=== PATIENT | male | born 1985 | race Two or more races ===

== ENCOUNTER 2021-04-13 19:50 | Emergency (ER) | payer MEDICAID, SELFPAY ==
--- NOTE | ~2021-04-13 | XR_ITS ---
EXAMINATION: XR CHEST CLINICAL INFORMATION: Anterior left-sided chest pain COMPARISON: None TECHNIQUE: 2 views of the chest were obtained. FINDINGS: No significant abnormality is noted involving the heart, lungs, mediastinum, bony thorax or soft tissues. XR/XR chest 2V IMPRESSION: Unremarkable examination.
[2021-04-13 20:44] VITALS: BP 145/84; PULSE 55; RESP 15; TEMP 37; O2SAT 99; BMI 24.4
--- NOTE | 2021-04-13 21:17 | ED_ITS ---
HPI - Fall General Chief Complaint: Fall Stated Complaint: fall at work, concerned of rib fracture Time Seen by Provider: 04/13/21 19:53 Source: patient Mode of arrival: ambulatory Limitations: no limitations History of Present Illness HPI Narrative: Patient is a 35 year old male presenting to the emergency department today with left rib pain. Patient states that 2 days ago he slipped on ice and has been having left sided rib pain since. Patient denies hitting his head with the incident. Patient denies any other injuries from the incident. Patient denies any lost of consciousness with the incident. Patient denies any dizziness, lightheadedness, abdominal pain, nausea, vomiting, fever, chills, blurry vision, double vision, loss of vision, chest pain, difficulty breathing, shortness of breath, back pain, night sweats, pain with urination, increased urinary frequency, increased urinary urgency, blood in his urine or stool, syncope or a near syncopal episode, bowel incontinence, bladder incontinence, bowel retention, bladder retention, or any other complaints at this time. MD complaint: fall Loss of consciousness: none Related Data Allergies Allergy/AdvReac Type Severity Reaction Status Date / Time Unable to Assess Allergy Verified 04/13/21 19:54 Review of Systems Constitutional: Constitutional: Reports no additional constitutional complaints, Denies chills, Denies fever(s) and Denies night sweats Eyes: Eyes: Reports no additional eye complaints, Denies blurry vision, Denies change in vision, Denies diplopia, Denies eye discharge, Denies loss of vision and Denies eye pain ENT: Denies dizziness Cardiovascular: Cardiovascular: Reports no additional cardiovascular complaints, Denies chest pain, Denies lightheadedness, Denies Loss of Consciousness and Denies dyspnea Respiratory: Respiratory: Reports no additional respiratory complaints and Denies dyspnea Gastrointestinal: Gastrointestinal: Reports no additional gastrointestinal complaints, Denies abdominal pain, Denies melena, Denies hematochezia, Denies change in bowel habits and Denies change in stool character Genitourinary: Genitourinary: Reports no additional male genitourinary complaints, Denies hematuria, Denies oliguria, Denies difficulty urinating, Denies dysuria, Denies urinary frequency, Denies urinary hesitancy, Denies urinary incontinence and Denies urinary urgency Musculoskeletal: Musculoskeletal: Reports no additional musculoskeletal c omplaints, Denies numbness and Denies tingling Comments: left rib pain Neurologic: Denies dizziness, Denies loss of vision, Denies numbness and Denies tingling Psychiatric: Psychiatric: Reports no additional psychiatric complaints Endocrine: Endocrine: Reports no additional endocrine complaints Hematologic/Lymphatic: Hematologic/Lymphatic: Reports no additional hematologic/lymphatic complaints Allergic/Immunologic: Allergic/Immunologic: Reports no additional allergic/immunologic complaints PMFSH Past Medical History Attestation statement: The following information was validated with the patient. Source: old records reviewed Medical History No known health problems Surgical History History of ankle surgery Physical Exam Vital Signs: Vital Signs: Last Vital Signs Temp 98.6 F 04/13/21 20:44 Pulse 55 04/13/21 20:44 Resp 15 04/13/21 20:44 BP 145/84 H 04/13/21 20:44 Pulse Ox 99 04/13/21 20:44 BMI result Body Mass Index 24.4 Const: General: cooperative, no acute distress, alert and awake Nutritional Appearance: well nourished Orientation/consciousness: patient oriented x3 Limitations: no limitations HENMT: Head: Yes normal to inspection and Yes atraumatic Ears: hearing grossly normal bilaterally and external ears normal General nose exam: Normal external nose present, no nasal discharge noted and no epistaxis Face and sinus: Yes normal facial exam, No abrasion and No laceration Mouth: Normal oral and palatal mucosa present, no drooling and no muffled voice Eyes: General: appearance normal, both eyes and all related structures Periorbital: periorbital findings normal Eyelids: Yes eyelids normal Conjunctivae: conjunctivae normal Pupils: Equal, round and reactive pupils present EOM: EOMs intact bilaterally Neck: Neck: Yes normal visual inspection, Yes full ROM and Yes no lymphadenopathy Chest: Chest palpation & inspection: normal inspection of the chest Resp: Effort & Inspection: normal respiratory effort and able to speak in complete sentences Auscultation: clear to auscultation bilaterally Cardio: Rate: regular rate Rhythm: regular rhythm GI: Inspection: Yes normal to inspection Neuro: General: patient oriented x3 and moves all extremities Cranial nerves: Yes Equal, round and reactive pupils present Cognition (Neuro): normal cognition Motor exam (neuro): 5/5 motor strength present throughout Sensory Exam: Normal double simultaneous stimulation for sensation Coordin ation: [id number] test normal Extrem: General: Yes normal to inspection, Yes full ROM and Yes capillary refill normal Psych: Appearance: grossly normal Mental Status: mental status grossly normal Affect: normal affect Attitude: cooperative Thought process: Normal thought process present Thought content: Normal thought content present Insight: Good insight present (Psych) MDM - Fall MDM Narrative Medical decision making narrative: Patient is a 35 year old male presenting to the emergency department today with left rib pain. Patient's physical exam was unremarkable. Patient's chest x-ray showed no acute process. I explained my physical exam findings as well as all test results to the patient. I answered all questions asked by the patient. I stressed the importance of the patient taking his medication as prescribed. I stressed the importance of the patient following up with his primary care provider. I stressed the importance of the patient returning to the emergency department immediately if his symptoms were to worsen or if he were to develop any dizziness, shortness of breath, difficulty breathing, chest pain, blurry vision, loss of vision, nausea, vomiting, abdominal pain, fever, chills, back pain, or any other complaints. Patient verbalized agreement and understanding with this treatment plan and discharge. Differential Diagnosis Differential diagnosis: Likely fracture Medical Records Attestation: I reviewed the patient's medical records. Imaging Data Chest x-ray: Attestation: I personally reviewed and interpreted this imaging study as follows: Radiologist's impression: EXAMINATION: XR CHEST CLINICAL INFORMATION: Anterior left-sided chest pain COMPARISON: None TECHNIQUE: 2 views of the chest were obtained. FINDINGS: No significant abnormality is noted involving the heart, lungs, mediastinum, bony thorax or soft tissues. XR/XR chest 2V IMPRESSION: Unremarkable examination. Dictated By: FORTUNATO SPENCE MD Signed By: Electronically signed by FORTUNATO SPENCE MD 04/13/212012 Discharge Plan Discharge Clinical Impression: Fall Patient Disposition: Home, Self-Care Instructions: Fall Prevention (ED) Additional Instructions: Follow up with your primary care provider. Return to the emergency department immediately if your symptoms worsen or if you develop any dizziness, shortness of breath, difficulty breathing, chest pain, blurry vision, loss of vision, nausea, vomiting, abdominal pain, fever, chills, back pain, or any other complaints. Print Language: Guyanese
== END 2021-04-13 23:21 | disposition home or self-care (01) ==
PROVIDERS: Emergency Provider Internal Medicine
DX: R07.81 Pleurodynia (principal); Z91.81 History of falling
CPT/HCPCS: 71046; 99283

== ENCOUNTER 2021-05-13 21:33 | Emergency (ER) | payer MEDICAID, SELFPAY ==
[2021-05-13 22:59] VITALS: BP 139/65; PULSE 58; RESP 18; TEMP 36.7; O2SAT 98; BMI 24.1
--- NOTE | 2021-05-13 23:32 | ED_ITS ---
HPI - Eye Problem General Chief complaint: Eye Problems Stated complaint: piece of nail hit his eye Time Seen by Provider: 05/13/21 23:32 Source: patient Mode of arrival: ambulatory Limitations: language barrier History of Present Illness HPI Narrative: Patient was working on a project while nailing with hammer, the head of the nail flipped in the air and hit his left eye this happened yesterday at 13:00 within few hours of the injury patient patient vision got decreased in the left eye has light perception hand movements but mostly is black shadow no other injuries at this time patient feels slight pressure in the left eye with decreased vision Related Data Allergies Allergy/AdvReac Type Severity Reaction Status Date / Time No Known Allergies Allergy Verified 05/13/21 23:02 Review of Systems Review of Systems: Yes all other systems are reviewed and are negative [facility] Past Medical History Medical History No known health problems Surgical History History of ankle surgery Social History Social History Advance Directives: No Physical Exam Vital Signs: Vital Signs: Last Vital Signs Temp 98.1 F 05/13/21 22:59 Pulse 58 05/13/21 22:59 Resp 18 05/13/21 22:59 BP 139/65 05/13/21 22:59 Pulse Ox 98 05/13/21 22:59 BMI result Body Mass Index 24.1 Const: General: comfortable and no acute distress Eyes: Other: PERRL, anterior chamber normal left side, is slight erythema of the sclera Cornea normal in appearance negative for fluorescein uptake Funduscopy unable to visualize fundus behind and anterior chamber on the left eye, right eyes normal Ultrasound of the left eye done by myself shows normal Lens and posterior chamber and the retina Normal visual acuity right eye Left eye a perception to the light present hand signs present otherwise unable to see MDM - Eye Problem MDM Narrative Medical decision making narrative: Patient has closed injury to the left eye clinically has hyphema patient advised to follow-up with the aircraft sales representative Dr. Gomez tomorrow for early appointment Discharge Plan Discharge Clinical Impression: Hyphema Patient Disposition: Home, Self-Care Instructions: Hyphema (ED) Additional Instructions: Avoid straining or stooping Call aircraft sales representative tomorrow to see as soon as possible Report to the ER if worsening of the vision or pain Evite monika o naida Hardwick ma?cherelle al oftalm?logo para joey lo antes posible Informar a urgencias si empeora la visi?n o el dolor Referrals: Hussein Gomez [Physician] - 3 days Interventions: ED Discharge Assessment Last Done: 05/14/21 00:45 Discharge Date/Time: 05/14/21 00:47
--- NOTE | 2021-05-14 00:24 | PC.NURSE ---
PT EVALED BY DR HUERTA FOR LEFT EYE INJURY. EYE STAINED AND EXAMINED. BEDSIDE ULTRASOUND DONE BY DR HUERTA.
[2021-05-14] MEDS: Fluorescein Sodium STRIP 1 STRIP EYE-LEFT (00:33)
[2021-05-14] MEDS: Tetracaine HCl/PF 0.5% Oph Sol 4 ML DROPS 3 DROP EYE-LEFT (00:33)
[2021-05-14] MEDS: Tobramycin Sulfate 0.3% Sol Op 5 ML BTL 2 DROP EYE-LEFT (00:33)
== END 2021-05-14 00:47 | disposition home or self-care (01) ==
PROVIDERS: Emergency Provider Internal Medicine
DX: S05.12XA Contusion of eyeball and orbital tissues, left eye, initial encounter (principal); W20.8XXA Other cause of strike by thrown, projected or falling object, initial encounter; H57.12 Ocular pain, left eye; Y93.89 Activity, other specified; Y92.9 Unspecified place or not applicable; Y99.9 Unspecified external cause status
CPT/HCPCS: 99284

== ENCOUNTER 2022-03-24 12:23 | Emergency (ER) | payer MEDICAID, SELFPAY ==
--- NOTE | ~2022-03-24 | XR_ITS ---
EXAMINATION: XR ANKLE, RIGHT XR FOOT, RIGHT CLINICAL INFORMATION: Fall, trauma, pain COMPARISON: None TECHNIQUE: 2 views of the right ankle and 2 views of the right foot are obtained. A lateral view of the combined right ankle and foot is also included for a total of 5 views. FINDINGS: There is no fracture or dislocation. There is compression plate and screws involving the distal fibular and lateral malleolus. The hardware is intact. No destructive process or osteolysis. The ankle mortise is symmetric. There is mild soft tissue swelling medial and lateral sides of the ankle. The retrocalcaneal recess is preserved. The subtalar joint is unremarkable. The foot shows no fracture or dislocation or arthropathy. XR/XR foot RT min 3V IMPRESSION: -Mild soft tissue swelling medial and lateral ankle. -No fracture or dislocation, ankle and foot. -Prior ORIF distal fibula and lateral malleolus. Hardware intact.
--- NOTE | ~2022-03-24 | XR_ITS ---
EXAMINATION: XR HIP, RIGHT CLINICAL INFORMATION: Fall, trauma, pain COMPARISON: None TECHNIQUE: AP view of the pelvis is performed. The right hip is imaged in AP and frog-lateral projections. There are a total of 3 views. FINDINGS: There is transitional vertebrae at lumbosacral junction with right douglas-sacralization and left douglas-lumbarization representing developmental variant. The pelvis and right hip show no fracture or dislocation. Left hip is unremarkable. There is no diastases SI joints or pubis. No arthropathy. Bowel gas unremarkable. XR/XR hip RT w PEL1V IMPRESSION: No fracture or dislocation.
--- NOTE | ~2022-03-24 | XR_ITS ---
EXAMINATION: XR ANKLE, RIGHT XR FOOT, RIGHT CLINICAL INFORMATION: Fall, trauma, pain COMPARISON: None TECHNIQUE: 2 views of the right ankle and 2 views of the right foot are obtained. A lateral view of the combined right ankle and foot is also included for a total of 5 views. FINDINGS: There is no fracture or dislocation. There is compression plate and screws involving the distal fibular and lateral malleolus. The hardware is intact. No destructive process or osteolysis. The ankle mortise is symmetric. There is mild soft tissue swelling medial and lateral sides of the ankle. The retrocalcaneal recess is preserved. The subtalar joint is unremarkable. The foot shows no fracture or dislocation or arthropathy. XR/XR ankle RT min 3V IMPRESSION: -Mild soft tissue swelling medial and lateral ankle. -No fracture or dislocation, ankle and foot. -Prior ORIF distal fibula and lateral malleolus. Hardware intact.
--- NOTE | 2022-03-24 12:39 | ED_ITS ---
HPI - Fall General Chief Complaint: Fall <KISHORE Mccann Last Filed: 03/24/22 12:44> Stated Complaint: fall 03/24/22 R foot inj <KISHORE Mccann Last Filed: 03/24/22 12:44> Time Seen by Provider: 03/24/22 14:29 <KISHORE Mccann Last Filed: 03/24/22 12:44> Source: patient <KISHORE Osman Last Filed: 03/24/22 16:12> Mode of arrival: ambulatory <KISHORE Osman Last Filed: 03/24/22 16:12> History of Present Illness HPI Narrative: 36-year-old male with no significant past medical history presenting to the ED complaining of right ankle/foot and right hip pain s/p falling off a 6 ft ladder onto feet SOFTWARE APPLICATIONS SPECIALIST. Denies falling all the way to ground, head trauma, or LOC. denies taking anticoagulation. Denies neck/back pain, numbness, tingling, weakness <KISHORE Osman Last Filed: 03/24/22 16:12> MD complaint: fall <KISHORE Osman Last Filed: 03/24/22 16:12> Related Data Home Medications: Previous Rx's Medication Instructions Recorded acetaminophen 500 mg tablet 500 mg PO Q6H PRN fever or pain 03/24/22 (Tylenol Extra Strength) #14 tabs ibuprofen 800 mg tablet 800 mg PO Q8H PRN pain #14 tabs 03/24/22 <KISHORE Mccann Last Filed: 03/24/22 12:44> Allergies/Adverse Reactions: Allergies Allergy/AdvReac Type Severity Reaction Status Date / Time No Known Allergies Allergy Verified 03/24/22 12:43 <KISHORE Mccann Last Filed: 03/24/22 12:44> Review of Systems Review of Systems: Constitutional: No Fever, No Chills ENT/Mouth: No Ear Pain, No Nasal Congestion, No sore throat, No Rhinorrhea, No Swallowing Difficulty Cardiovascular: No Chest Pain, No SOB Respiratory: No Cough, No Sputum Gastrointestinal: No Nausea, No Vomiting, No Diarrhea, No Constipation, No Abdominal pain Genitourinary: No Dysuria, No Urinary Frequency, No Hematuria, No Flank Pain Musculoskeletal: + joint pain, No Myalgias, + Joint Swelling Skin: No Skin Lesions, No rash Neuro: No Weakness, No Numbness, No Paresthesias <KISHORE Osman - Last Filed: 03/24/22 16:12> Yes all other systems are reviewed and are negative <KISHORE Osman - Last Filed: 03/24/22 16:12> Constitutional: Constitutional: Reports as per HPI <KISHORE Osman - Last Filed: 03/24/22 16:12> [facility] Past Medical History Attestation statement: The following information was validated with the patient. <KISHORE Osman - Last Filed: 03/24/22 16:12> Medical History: Medical History No known health problems <KISHORE Mccann - Last Filed: 03/24/22 12:44> Surgical History: Surgical History History of ankle surgery <KISHORE Mccann - Last Filed: 03/24/22 12:44> Social History Social History: Social History Advance Directives: No Advance Directives Information Provided: No <KISHORE Mccann - Last Filed: 03/24/22 12:44> Physical Exam Vital Signs: Vital Signs: Last Vital Signs Temp 98 F 03/24/22 12:40 Pulse 94 03/24/22 12:40 Resp 03/24/22 12:40 BP 151/87 H 03/24/22 12:40 Pulse Ox 97 03/24/22 12:40 BMI result Body Mass Index 29.3 <KISHORE Mccann - Last Filed: 03/24/22 12:44> Vital Signs: Last Vital Signs Temp 98 F 03/24/22 12:40 Pulse 94 03/24/22 12:40 Resp 03/24/22 12:40 BP 151/87 H 03/24/22 12:40 Pulse Ox 97 03/24/22 12:40 BMI result Body Mass Index 29.3 <KISHORE Osman - Last Filed: 03/24/22 16:12> Vital Signs: Last Vital Signs Temp 98 F 03/24/22 12:40 Pulse 94 03/24/22 12:40 Resp 19 03/24/22 12:40 BP 151/87 H 03/24/22 12:40 Pulse Ox 97 03/24/22 12:40 BMI result Body Mass Index 29.3 <Jeremy Patterson MD - Last Filed: 03/31/22 16:26> Const: General: cooperative, healthy appearing and comfortable <KISHORE Osman - Last Filed: 03/24/22 16:12> Orientation/consciousness: patient oriented x3 <KISHORE Osman - Last Filed: 03/24/22 16:12> Limitations: no limitations <KISHORE Osman - Last Filed: 03/24/22 16:12> HEENT: Head: Yes normal to inspection and Yes atraumatic <KISHORE Osman - Last Filed: 03/24/22 16:12> Ears: hearing grossly normal bilaterally <KISHORE Osman - Last Filed: 03/24/22 16:12> General nose exam: Normal external nose present <KISHORE Osman - Last Filed: 03/24/22 16:12> Face and sinus: Yes normal facial exam <KISHORE Osman - Last Filed: 03/24/22 16:12> Eyes: General: appearance normal, both eyes and all related structures <KISHORE Osman - Last Filed: 03/24/22 16:12> EOM: EOMs intact bilaterally <KISHORE Osman - Last Filed: 03/24/22 16:12> Neck: Other: No midline cervical spinous tenderness <KISHORE Osman - Last Filed: 03/24/22 16:12> Neck: Yes normal visual inspection and Yes no meningeal signs <KISHORE Osman - Last Filed: 03/24/22 16:12> Resp: Effort & Inspection: normal respiratory effort and no respiratory distress <KISHORE Osman - Last Filed: 03/24/22 16:12> Cardio: Rate: regular rate <KISHORE Osman - Last Filed: 03/24/22 16:12> GI: Inspection: Yes normal to inspection <KISHORE Osman Last Filed: 03/24/22 16:12> Back/Spine/Pelvis: Other: No midline thoracic/lumbar spinous tenderness/step-off or deformity <KISHORE Osman - Last Filed: 03/24/22 16:12> Skin: Rashes: no rashes <KISHORE Osman Last Filed: 03/24/22 16:12> Wounds: no wounds <KISHORE Osman Last Filed: 03/24/22 16:12> Neuro: General: patient oriented x3, tone normal, moves all extremities and no meningeal signs <KISHORE Osman Last Filed: 03/24/22 16:12> Gait exam (Neuro): Normal gait present <KISHORE Osman Last Filed: 03/24/22 16:12> Extrem: Other: Right hip/upper thigh with mild tenderness to palpation. Active and passive ROM to hip and knee intact without pain. Right ankle with noted swelling, diffusely tender to palpation. Foot nontender. NV intact. Limited ROM of ankle secondary to pain. No crepitus/erythema or ecchymosis <KISHORE Osman Last Filed: 03/24/22 16:12> Course Course Course Narrative: RME- 12:40PM - 36yoM who is Tristanian speaking our PA student speaks Tristanian therefore is translating for us in triage who is presenting to the ER after he Fell off a ladder 6ft onto his feet standing then whatever he fell on top made his leg twist and since then has been having right hip/thigh/ankle. Denies head injury or LOC or any other injuries complaints or concerns at this time. Plan: Will obtain right hip and right ankle/foot x-ray. Patient will be sent back to the waiting room to evaluated in [facility]. <KISHORE Mccann - Last Filed: 03/24/22 12:44> RME- 12:40PM - 36yoM who is Tristanian speaking our PA student speaks Tristanian therefore is translating for us in triage who is presenting to the ER after he Fell off a ladder 6ft onto his feet standing then whatever he fell on top made his leg twist and since then has been having right hip/thigh/ankle. Denies head injury or LOC or any other injuries complaints or concerns at this time. Plan: Will obtain right hip and right ankle/foot x-ray. Patient will be sent back to the waiting room to evaluated in [facility]. XR ankle RT min 3V/XR foot RT min 3V IMPRESSION: -Mild soft tissue swelling medial and lateral ankle. -No fracture or dislocation, ankle and foot. -Prior ORIF distal fibula and lateral malleolus. Hardware intact. XR hip RT w PEL1V IMPRESSION: No fracture or dislocation. > patient placed in Aircast and supplied with crutches is to follow-up with PCP/ortho as needed Results discussed with patient including worrisome signs and symptoms and strict return precautions, and when to return to the emergency department. They verbal ized understanding and feel safe for discharge at this time. <KISHORE Osman - Last Filed: 03/24/22 16:12> Medications Administered Discontinued Medications Generic Name Dose Route Start Last Admin Trade Name Freq PRN Reason Stop Dose Admin Ketorolac Tromethamine 30 mg 03/24/22 15:24 03/24/22 15:28 Ketorolac Tromethamine 30 Mg/Ml Vial IM 03/24/22 15:25 30 mg ONCE ONE Administration <KISHORE Mccann - Last Filed: 03/24/22 12:44> Medications Administered Discontinued Medications Generic Name Dose Route Start Last Admin Trade Name Freq PRN Reason Stop Dose Admin Ketorolac Tromethamine 30 mg 03/24/22 15:24 03/24/22 15:28 Ketorolac Tromethamine 30 Mg/Ml Vial IM 03/24/22 15:25 30 mg ONCE ONE Administration <KISHORE Osman - Last Filed: 03/24/22 16:12> Medications Administered Discontinued Medications Generic Name Dose Route Start Last Admin Trade Name Freq PRN Reason Stop Dose Admin Ketorolac Tromethamine 30 mg 03/24/22 15:24 03/24/22 15:28 Ketorolac Tromethamine 30 Mg/Ml Vial IM 03/24/22 15:25 30 mg ONCE ONE Administration <Jeremy Patterson MD - Last Filed: 03/31/22 16:26> Medical Decision Making Medical Decision Making MDM Narrative: 36-year-old male with no significant past medical history presenting to the ED complaining of right ankle/foot and right hip pain s/p falling off a 6 ft ladder onto feet SOFTWARE APPLICATIONS SPECIALIST. On exam vital signs stable, NAD, nontoxic appearing, physical exam as noted above. Concern for fracture versus sprain. No calcaneus tenderness, low suspicion for compression spinal deformity. Plan: X-ray, IM Toradol Please refer to course for remaining clinical decision making, interpretation of labs/imaging results, and discussions with consultants and/or family members. <KISHORE Osman - Last Filed: 03/24/22 16:12> Differential Diagnosis Differential Diagnoses: The differential diagnosis associated with the presentation includes (As above) <KISHORE Osman - Last Filed: 03/24/22 16:12> Radiology Impression Discussion of test interpretation with radiology: I have reviewed the radiologist's reading. <KISHORE Osman - Last Filed: 03/24/22 16:12> Prescription Management I considered prescription management with: Pain Medication <KISHORE Osman - Last Filed: 03/24/22 16:12> Attestation Attending Attestation: I reviewed PROCESS CONTROL SPECIALIST/PA/Resident note, assessment and plan. I agree with the documentation, assessment and plan unless otherwise stated. <Jeremy Patterson MD - Last Filed: 03/31/22 16:26> Discharge Plan Discharge Clinical Impression: Ankle sprain <KISHORE Mccann - Last Filed: 03/24/22 12:44> Patient Disposition: Home, Self-Care <KISHORE Mccann - Last Filed: 03/24/22 12:44> Instructions: Ankle Sprain (ED) <KISHORE Mccann - Last Filed: 03/24/22 12:44> Additional Instructions: Your x-ray does not show any fractures, however you do have a lot of soft tissue swelling, you sprained your ankle. Bear weight as tolerated. Wear Aircast for comfort and stability Ice and elevate Take Tylenol and Motrin which will help with pain and inflammation Follow-up with her doctor If symptoms persist or worsen return to the emergency department <KISHORE Mccann - Last Filed: 03/24/22 12:44> Prescriptions: New ibuprofen 800 mg tablet 800 mg PO Q8H PRN (Reason: pain) Qty: 14 0RF acetaminophen [Tylenol Extra Strength] 500 mg tablet 500 mg PO Q6H PRN (Reason: fever or pain) Qty: 14 0RF <KISHORE Mccann - Last Filed: 03/24/22 12:44> Referrals: [facility] [place] [facility] [place] Group] Physician,Unknown J [Primary Care Provider] - <KISHORE Mccann - Last Filed: 03/24/22 12:44> Stand Alone Forms: Work/School Release <KISHORE Mccann - Last Filed: 03/24/22 12:44> Interventions: ED Discharge Assessment Last Done: 03/24/22 16:03 <KISHORE Mccann - Last Filed: 03/24/22 12:44> Discharge Date/Time: 03/24/22 16:03 <KISHORE Mccann - Last Filed: 03/24/22 12:44>
[2022-03-24 12:40] VITALS: BP 151/87; PULSE 94; RESP 19; TEMP 36.6; O2SAT 97; BMI 29.3
[2022-03-24] MEDS: Ketorolac Tromethamine 30 MG/ML VIAL IM (15:28)
== END 2022-03-24 16:03 | disposition home or self-care (01) ==
PROVIDERS: Emergency Provider Emergency Medicine
DX: S93.401A Sprain of unspecified ligament of right ankle, initial encounter (principal); M25.571 Pain in right ankle and joints of right foot; M25.551 Pain in right hip; W11.XXXA Fall on and from ladder, initial encounter; Y93.9 Activity, unspecified; Y92.9 Unspecified place or not applicable; Y99.9 Unspecified external cause status; Z79.899 Other long term (current) drug therapy
CPT/HCPCS: 73502; 73610; 73630; 96372; 99283; 99284; J1885

== ENCOUNTER 2022-04-28 13:13 | Emergency (ER) | payer MEDICAID, OTHER, SELFPAY ==
[2022-04-28 13:44] VITALS: BP 128/71; PULSE 59; RESP 16; TEMP 36.7; O2SAT 100; BMI 27.5
--- NOTE | 2022-04-28 13:54 | ED_ITS ---
HPI - General Adult General Chief complaint: Extremity Injury, Lower Stated complaint: R foot inj Time Seen by Provider: 04/28/22 13:54 Source: patient, RN notes reviewed, old records reviewed and freelance interpreter/translator Mode of arrival: ambulatory Limitations: language barrier History of Present Illness HPI narrative: 36-year-old male presents for evaluation of right ankle pain. Patient was seen here in 03/24/2022 He was diagnosed with an ankle sprain Patient took ibuprofen / Tylenol with some relief of his symptoms. He still endorses mild pain with ambulation. Related Data Previous Rx's Medication Instructions Recorded acetaminophen 500 mg tablet 500 mg PO Q6H PRN fever or pain 03/24/22 (Tylenol Extra Strength) #14 tabs ibuprofen 800 mg tablet 800 mg PO Q8H PRN pain #14 tabs 03/24/22 Allergies Allergy/AdvReac Type Severity Reaction Status Date / Time No Known Allergies Allergy Verified 03/24/22 12:43 Review of Systems Constitutional: Constitutional: Reports as per HPI, Denies chills, Denies fatigue and Denies fever(s) Neurologic: Denies focal weakness Endocrine: Endocrine: Denies fatigue [facility] Past Medical History Medical History No known health problems Surgical History History of ankle surgery Physical Exam ED Vital Signs: Vital Signs - 24 hr 04/28/22 13:44 Temperature 98.1 F Pulse Rate 59 Respiratory Rate 16 Blood Pressure 128/71 Pulse Oximetry 100 Oxygen Delivery Method Room Air BMI result Body Mass Index 27.5 Const General: healthy appearing, comfortable, no acute distress, alert and awake Nutritional Appearance: well nourished Orientation/consciousness: patient oriented x3 HENMT Head: Yes normocephalic and Yes atraumatic Throat: Yes posterior oropharynx normal Eyes Eyelids: Yes eyelids normal Conjunctivae: conjunctivae normal Sclerae: sclerae normal Corneas: corneas normal Pupils: Equal, round and reactive pupils present EOM: EOMs intact bilaterally Neck Neck: Yes full ROM Resp Effort & Inspection: normal respiratory effort, able to speak in complete sentences, no audible wheezes and not labored Auscultation: clear to auscultation bilaterally Skin General skin exam: no rashes or lesions noted and elasticity normal Neuro General: patient oriented x3 Cranial nerves: Yes Equal, round and reactive pupils present and Yes Bilaterally intact EOM present Cognition (Neuro): normal cognition Extrem Other: Moving all extremities well without any obvious deformities Medical Decision Making Medical Decision Making MDM Narrative: Patient is seen and evaluated, he denies any new fracture, he has a reassuring physical exam. The patient was given orthopedic follow-up but he reports not following up. I discussed this with the patient and he would like to be discharged at this time and will follow-up with orthopedics as an outpatient for further evaluation and management. I do not see any indication for further imaging at this time. He denies any new injury Differential Diagnosis Ankle sprain Contusion Fracture Tendon injury Ligamentous injury Discharge Plan Discharge Clinical Impression: Ankle pain Patient Disposition: Home, Self-Care Instructions: Ankle Sprain (ED) Additional Instructions: Follow-up with orthopedics at the number provided Prescriptions: No Action ibuprofen 800 mg tablet 800 mg PO Q8H PRN (Reason: pain) Qty: 14 0RF acetaminophen [Tylenol Extra Strength] 500 mg tablet 500 mg PO Q6H PRN (Reason: fever or pain) Qty: 14 0RF Referrals: Isiah Watson MD [Physician] - (ankle pain since 03/24/22. negative x-rays)
== END 2022-04-28 14:06 | disposition home or self-care (01) ==
PROVIDERS: Emergency Provider Student in an Organized Health Care Education/Training Program
DX: M25.571 Pain in right ankle and joints of right foot (principal)
CPT/HCPCS: 99282

== ENCOUNTER → 2022-05-18 10:55 | Outpatient (BNVA) | payer MEDICAID, SELFPAY | PROVIDERS: Visit Provider Physician Assistant | DX: S93.401A Sprain of unspecified ligament of right ankle, initial encounter (principal) | CPT/HCPCS: 99202 ==

== ENCOUNTER 2022-12-23 09:44 | Emergency (ER) | payer MEDICAID, OTHER, SELFPAY ==
--- NOTE | ~2022-12-23 | XR_ITS ---
EXAMINATION: XR KNEE, LEFT CLINICAL INFORMATION: Left knee pain and swelling. COMPARISON: None available. TECHNIQUE: Two views of the left knee. FINDINGS: Alignment is anatomic. Joint spaces are maintained. No displaced fracture. There is a moderate suprapatellar joint effusion. XR/XR knee LT 2V IMPRESSION: Moderate suprapatellar joint effusion.
[2022-12-23 09:52] VITALS: BP 140/84; PULSE 88; RESP 14; TEMP 36.1; O2SAT 99; BMI 27.7
--- NOTE | 2022-12-23 10:46 | ED_ITS ---
HPI - Extremity Injury (Lower) General Chief Complaint: Extremity Injury, Lower Stated Complaint: L Knee Pain Injury 12/17/22 Time Seen by Provider: 12/23/22 10:11 Source: patient, RN notes reviewed and old records reviewed Mode of arrival: ambulatory History of Present Illness HPI Narrative: 37-year-old male with no significant past medical history presenting to ED complaining of left knee pain and swelling s/p twisting wrong while playing soccer 6 days ago. Reports increasing pain with movement, ambulating, and bending. Also reports physical job which is exacerbating symptoms. Denies direct injury/trauma or fall, numbness, tingling, weakness, fever. MD complaint: knee injury Related Data Previous Rx's Medication Instructions Recorded naproxen 500 mg tablet 500 mg PO BID PRN pain 10 days #20 12/23/22 tabs Allergies Allergy/AdvReac Type Severity Reaction Status Date / Time No Known Allergies Allergy Verified 05/18/22 11:12 Review of Systems Review of Systems: Constitutional: No Fever, No Chills ENT/Mouth: No Ear Pain, No Nasal Congestion, No Sinus Pain, No Hoarseness, No sore throat, No Rhinorrhea, No Swallowing Difficulty Cardiovascular: No Chest Pain, No SOB Respiratory: No Cough, No Sputum, No Wheezing Musculoskeletal: + joint pain, No Myalgias, + Joint Swelling Skin: No Skin Lesions, No rash Neuro: No Weakness, No Numbness, No Paresthesias Yes all other systems are reviewed and are negative Constitutional: Constitutional: Reports as per [facility] Past Medical History Attestation statement: The following information was validated with the patient. Source: old records reviewed Medical History No known health problems Surgical History Hx of eye surgery History of ankle surgery Social History Social History Patient Tobacco Use Status: Never used Tobacco Current occupational status: employed Current occupation: [employer] Physical Exam Vital Signs: Vital Signs: Last Vital Signs Temp 96.9 F 12/23/22 09:52 Pulse 88 12/23/22 09:52 Resp 14 12/23/22 09:52 BP 140/84 H 12/23/22 09:52 Pulse Ox 99 12/23/22 09:52 O2 Del Method Room Air 12/23/22 09:52 BMI result Body Mass Index 27.7 Const: General: cooperative, healthy appearing and no acute distress Orientation/consciousness: patient oriented x3 Limitations: no limitations HEENT: Head: Yes normal to inspection and Yes atraumatic Ears: hearing grossly normal bilaterally General nose exam: Normal external nose present Face and sinus: Yes normal facial exam Eyes: General: appearance normal, both eyes and all related structures EOM: EOMs intact bilaterally Neck: Neck: Yes normal visual inspection and Yes no meningeal signs Resp: Effort & Inspection: normal respiratory effort and no respiratory distress Cardio: Rate: regular rate Skin: Rashes: no rashes Wounds: no wounds Neuro: General: patient oriented x3, tone normal and no meningeal signs Cranial nerves: Yes CN's II-XII intact bilaterally Gait exam (Neuro): Normal gait present Extrem: Other: Left knee with mild swelling and tenderness > suprapatellar region. Full range of motion intact with some discomfort. No pitting edema. Neurovascular intact distally. No erythema/warmth. No crepitus Course Course Course Narrative: XR knee LT 2V IMPRESSION: Moderate suprapatellar joint effusion. Results discussed with patient including worrisome signs and symptoms and strict return precautions, and when to return to the emergency department. They verbalized understanding and feel safe for discharge at this time. Medications Administered Discontinued Medications Generic Name Dose Route Start Last Admin Trade Name Freq PRN Reason Stop Dose Admin Ketorolac Tromethamine 30 mg 12/23/22 10:48 12/23/22 10:58 Ketorolac Tromethamine 30 Mg/Ml Vial IM 12/23/22 10:49 30 mg ONCE ONE Administration Medical Decision Making Medical Decision Making [facility] Narrative: 37-year-old male with no significant past medical history presenting to ED complaining of left knee pain and swelling s/p twisting wrong while playing soccer 6 days ago. On exam vital signs stable, NAD, nontoxic appearing, physical exam as above. Concern for strain however tendon/ligamental or meniscal injury. Lower suspicion for fracture/dislocation. No evidence of septic joint/arthritis Plan: X-ray, IM Toradol, orthopedic follow-up Please refer to course for remaining clinical decision making, interpretation of labs/imaging results, and discussions with consultants and/or family members. Differential Diagnosis Differential Diagnoses: The differential diagnosis associated with the presentation includes As above Independent Interpretation I performed an independent interpretation of an: Plain X-Ray Radiology Impression Discussion of test interpretation with radiology: I have reviewed the radiologist's reading. External Record Review External record reviewed: Inpatient record, Office record, Outpatient record, Prior outpatient labs, Prior outpatient radiology, Primary care record and Outside ED record Tests considered The following testing was considered but not selected: As above Prescription Management I considered prescription management with: Pain Medication Discharge Plan Discharge Clinical Impression: Suprapatellar effusion of knee Patient Disposition: Home, Self-Care Instructions: Swollen Knee Joint (ED) Additional Instructions: Your x-ray shows a suprapatellar knee effusion Wear Trev wrap/compression for comfort and stability Naproxen as an anti-inflammatory/pain medication, take with food. In addition take Tylenol home Follow-up with Orthopedics Is symptoms persist or worsen return to the ED you likely need an MRI Hartman radiograf?a muestra un derrame suprapatelar en la rodilla. Use envoltura/compresi?n Trev para mayor comodidad y estabilidad. Naproxeno daniel medicamento antiinflamatorio/analg?sico, t?azevedo con alimentos. Adem?s ll?vate Tylenol a casa. Seguimiento con [employer] ?Los s?ntomas persisten o empeoran? Regrese al servicio de urgencias. probablemente necesites haroon resonancia magn?ricky Prescriptions: New naproxen 500 mg tablet 500 mg PO BID PRN (Reason: pain) 10 Days Qty: 20 0RF Referrals: [facility] [Provider Group] Print Language: Lebanese
[2022-12-23] MEDS: Ketorolac Tromethamine 30 MG/ML VIAL IM (10:58)
== END 2022-12-23 11:05 | disposition home or self-care (01) ==
LOC: HO.ED 11:04
PROVIDERS: Emergency Provider Emergency Medicine
DX: M25.462 Effusion, left knee (principal)
CPT/HCPCS: 73560; 96372; 99283; 99284; J1885

== ENCOUNTER 2023-01-02 09:14 | Outpatient (AMB) | payer MEDICAID, SELFPAY ==
--- NOTE | 2023-01-02 09:19 | MHC.OFFVIS ---
Intake Vital Signs 01/02/23 09:27 Height 5 ft 4 in Weight 161 lb BMI 27.6 Intake Visit Reasons: Newprob-L Knee Pain Injury 12/17/22 Intake Note: [place] park 37 year old male presents today for an ER follow up left knee injury, DOI 12/17/22. Patient reports pain and swelling after he crashed into another player. He presented to [facility] ED about a week later where xrays were taken and referred to orthopedics. Currently his pain has improved however he continues to have intermittent swelling. His knee locks with prolong walking and stair use. Allergies No Known Allergies Allergy (Verified 01/02/23 09:28) HPI Newprob-L Knee Pain Injury 12/17/22 HPI Details 37-year-old male who presents to the office today for an ER follow-up of left knee injury while playing soccer, 12/17/22. He states another player crashed into the lateral side of the knee and he fellt a pop and immediate pain. He also developed swelling after the injury. He was seen in the ED about a week later where x-rays were performed and he was referred to our office. He currently states he has pain as well as intermittent swelling in the medial aspect of his knee. He also c/o his knee locking with ambulation and stair use. He finds relief with naproxen and knee brace. [facility] Medical History No known health problems Surgical History Hx of eye surgery History of ankle surgery Patient Tobacco Use Status: Never used Tobacco Current occupational status: employed Current occupation: carpentry Review of Systems Const All systems reviewed & are unremarkable except as noted in HPI and below Physical Exam Vital Signs: BMI result Body Mass Index 27.6 Const General: cooperative and no acute distress Orientation/consciousness: patient oriented x3 Resp Effort & Inspection: normal respiratory effort and able to speak in complete sentences Cardio Peripheral pulses: Peripheral pulses 2+ throughout Neuro General: patient oriented x3 Extrem Other: Left knee: Skin intact, no erythema or joint effusion. Tenderness along the medial joint line. Full ROM with crepitus. Positive Frank?s. No ligamentous laxity. NVI. Results Reviewed Results Reviewed: Xrays were obtained in the office today and personally reviewed by me negative for acute fracture or dislocation Assessment & Plan Assessment & Plan (1) Internal derangement of left knee: Code(s): M23.92 - Unspecified internal derangement of left knee Plan An of the left knee has been ordered to further evaluate the ligamentous structures. He will continue with activity as tolerated avoiding deep bending, squatting, kneeling or pivoting. He will see us back once the scan is complete. Orders: Orders MR knee LT wo con Today M23.92 - Unspecified internal derangement of left knee XR knee LT 1V Today M25.562 - Pain in left knee Patient Instructions: Scribed for Michelle Vaughn PA-C, by Mahin Thayer medical assisting program director, on 01/02/2023 at 9:15 AM EST. I, Michelle Vaughn PA-C, have personally reviewed and agree with the information entered by the scribe. Coding Level of Care Code New Pt Level 3 (47981) Diagnoses Internal derangement of left knee M23.92
[2023-01-02 09:27] VITALS: BMI 27.6
== END 2023-01-02 10:12 | disposition home or self-care (01) ==
PROVIDERS: Visit Provider Physician Assistant
DX: M23.92 Unspecified internal derangement of left knee (principal)
CPT/HCPCS: 99213

== ENCOUNTER 2023-01-02 10:36 | Outpatient (REF) | payer MEDICAID, OTHER, SELFPAY ==
--- NOTE | ~2023-01-02 | XR_ITS ---
EXAMINATION: XR KNEE, ONE VIEW CLINICAL INFORMATION: Pain COMPARISON: Knee radiograph from 12/23/2022 TECHNIQUE: [place] view of the left knee FINDINGS: No acute visible fracture or dislocation. Joint space alignment are maintained. Soft tissues are unremarkable. XR/XR knee LT 1V IMPRESSION: No acute visible fracture or dislocation.
== END 2023-01-02 10:37 | disposition home or self-care (01) ==
LOC: HO.HOSX 10:36
PROVIDERS: Visit Provider Physician Assistant
DX: M25.562 Pain in left knee (principal); M23.92 Unspecified internal derangement of left knee
CPT/HCPCS: 73560; 99212